=== PATIENT | female | born 2000 | race Caucasian/White ===

== ENCOUNTER 2020-07-20 12:40 | Emergency (ER) | payer OTHER ==
[2020-07-20 13:19] VITALS: BP 116/72
--- NOTE | 2020-07-20 13:38 | ER Document Report ---
ED Medical Screen (RME) - General Chief Complaint: Flank Pain Stated Complaint: RIGHT FLANK PAIN Time Seen by Provider: 07/20/20 13:31 - HPI Notes: 07/20/20 13:35 19-year-old female presents to the emergency room today complaints of right flank pain that started 4 days ago. Patient reports episodes lasting for up to an hour of burning pain. She reports she tried [id number] Tylenol without relief. Reports her episodes are 5 out of 5 pain. Reports nausea denies any vomiting, diarrhea, abdominal pain. Patient denies any dysuria. Patient is unsure of her last menstrual cycle as she was on the Depo shot, she has not received a Depo shot since March 2020. She is sexually active, does not use any form of contraceptive. Denies any vaginal bleeding or vaginal discharge. Patient has not taken a test. Denies any fevers or chills. Patient reports she does have a history of nephrolithiasis I have greeted and performed a rapid initial assessment of this patient. A comprehensive ED assessment and evaluation of the patient, analysis of test results and completion of the medical decision making process will be conducted by additional ED providers. PHYSICAL EXAMINATION: GENERAL: Well-appearing, well-nourished and in no acute distress. HEAD: Atraumatic, normocephalic. CV: s1, s2 regular LUNGS: No respiratory distress abd: Abdominal tenderness on palpation, no distention. No CVA tenderness appreciated bilaterally. Musculoskeletal: Normal range of motion NEUROLOGICAL: Normal speech, normal gait. SKIN: Warm, Dry, normal turgor, no rashes or lesions noted. The patient was evaluated during a global COVID-19 pandemic and that diagnosis was suspected/considered upon their initial presentation. Their evaluation, treatment and testing was consistent with current guidelines for patients who present with complaints or symptoms and may be related to COVID-19. Physical Exam - Vital signs Vitals: Temp Pulse Resp BP Pulse Ox 98.8 F 87 14 116/72 100 07/20/20 13:15 07/20/20 13:15 07/20/20 13:15 07/20/20 13:15 07/20/20 13:15 Course - Vital Signs Vital signs: Temp Pulse Resp BP Pulse Ox 98.8 F 87 14 116/72 100 07/20/20 13:15 07/20/20 13:15 07/20/20 13:15 07/20/20 13:15 07/20/20 13:15
[2020-07-20 14:05] LABS: ABSOLUTE BASOPHILS # (AUTO) 0.1 10^3/uL (0.0-0.2); ABSOLUTE LYMPHOCYTES (AUTO) 1.8 10^3/uL (0.5-4.7); ABSOLUTE MONOCYTES (AUTO) 0.5 10^3/uL (0.1-1.4); ABSOLUTE NEUT (AUTO) 4.4 10^3/uL (1.7-8.2); EOSINOPHILS % (AUTO) 0.6 % (0-6); HEMATOCRIT 40.1 % (36.0-47.0); HEMOGLOBIN 13.7 g/dL (12.0-15.5); LYMPHOCYTES % (AUTO) 25.8 % (13-45); MEAN CORPUSCULAR HGB CONC 34.1 g/dL (32.0-36.0); MEAN CORPUSCULAR VOLUME 88 fl (80-97); MONOCYTES % (AUTO) 7.5 % (3-13); PLATELET COUNT 223 10^3/uL (150-450); RED BLOOD COUNT 4.56 10^6/uL (3.72-5.28); RED CELL DISTRIBUTION WIDTH 12.6 % (11.5-14.0); SEGMENTED NEUTROPHILS % (AUTO) 65.1 % (42-78); TOTAL CELLS COUNTED % (AUTO) 100 %; WHITE BLOOD COUNT 6.8 10^3/uL (4.0-10.5)
[2020-07-20 14:15] LABS: APPEARANCE,URINE CLEAR; BILIRUBIN,URINE NEGATIVE (NEGATIVE); COLOR,URINE YELLOW; GLUCOSE, URINE NEGATIVE (NEGATIVE); KETONES,URINE NEGATIVE (NEGATIVE); LEUKOCYTE ESTERASE,URINE TRACE (NEGATIVE); NITRITE,URINE NEGATIVE (NEGATIVE); PROTEIN,URINE NEGATIVE (NEGATIVE); URINE SPECIFIC GRAVITY 1.014; UROBILINOGEN,URINE NEGATIVE mg/dL (<2.0)
[2020-07-20 14:45] LABS: ALKALINE PHOSPHATASE 64 U/L (38-126); ASPARTATE AMINO TRANSFERASE 39 U/L (14-36); BILIRUBIN,TOTAL 1.1 mg/dL (0.2-1.3); BLOOD UREA NITROGEN 9 mg/dL (7-20); CALCIUM 9.3 mg/dL (8.4-10.2); CARBON DIOXIDE 30 mmol/L (22-30); CHLORIDE 102 mmol/L (98-107); GLUCOSE 82 mg/dL (75-110); POTASSIUM 3.9 mmol/L (3.6-5.0); TOTAL PROTEIN 6.7 g/dL (6.3-8.2)
[2020-07-20 14:47] LABS: ANION GAP 4 (5-19)
--- NOTE | 2020-07-20 15:00 | RADIOLOGY REPORT (SQ) ---
EXAM DESCRIPTION: U/S RETROPERITON (RENAL/AORTA) IMAGES COMPLETED DATE/TIME: 07/20/2020 2:50 pm REASON FOR STUDY: right flank pain x4d, +nausea COMPARISON: None. TECHNIQUE: Dynamic and static grayscale images acquired of the kidneys and bladder and recorded on P ACS. Additional selected color Doppler and spectral images recorded. LIMITATIONS: None. FINDINGS: RIGHT KIDNEY: The right kidney measures 12.3 x 4.8 x 4.0 cm, normal size. Normal echogeni city. No solid or suspicious masses. No hydronephrosis. A 4 x 3 x 2 mm echogenic focus may represent a nonobstructing calculus. LEFT KIDNEY: The left kidney measures 11.6 x 4.7 x 4.4 cm, normal size. Normal echogenicity. No anders d or suspicious masses. No hydronephrosis. No calcifications. BLADDER: No masses. Bilateral ureteral jets are not visualized. OTHER FINDINGS: No other significant finding. IMPRESSION: 1. Nonobstructing small subcentimeter right renal calculus. TECHNICAL DOCUMENTATION: JOB ID: [id number] [employer]- All Rights Reserved Reading location - IP/workstation name: [email or web address]
--- NOTE | 2020-07-20 16:31 | ER Document Report ---
ED General - General Chief Complaint: Flank Pain Stated Complaint: RIGHT FLANK PAIN Time Seen by Provider: 07/20/20 13:31 Primary Care Provider: MIGUEL FORBES PA-C [Primary Care Provider] - Follow up as needed Mode of Arrival: Ambulatory Information source: Patient - [facility] Notes: Patient presents with right flank pain for approximately 4 days. She states it has been intermittent. Nothing makes it better or worse. It radiates from the right flank down the right lower part of the abdomen. It does make her nauseous when she gets the pain. No vomiting. She has had some constipation. No blood in the urine or significant pain with urination. She has had kidney stones in the past and this feels similar. She denies any knowledge of being and states that she had a negative test 2 days ago. No vaginal symptoms. Patient states she is never seen a urologist in the past. The pain is been sharp and severe. Past Medical History - General Information source: Patient - Social History Smoking Status: Current Every Day Smoker Chew tobacco use (# tins/day): No Frequency of alcohol use: Occasional Drug Abuse: None Family History: Reviewed & Not Pertinent Patient has homicidal ideation: No Review of Systems - Review of Systems Constitutional: denies: Chills, Fever Cardiovascular: denies: Chest pain, Palpitations Respiratory: denies: Cough, Short of breath -: Yes All other systems reviewed and negative Physical Exam - Vital signs Vitals: Temp 98.8 F 07/20/20 12:41 Interpretation: Normal - General General appearance: Appears well, Alert - HEENT Head: Normocephalic, Atraumatic Eyes: Normal Pupils: PERRL - Respiratory Respiratory status: No respiratory distress Chest status: Nontender Breath sounds: Normal Chest palpation: Normal - Cardiovascular Rhythm: Regular Heart sounds: Normal auscultation Murmur: No - Abdominal Inspection: Normal Distension: No distension Bowel sounds: Normal Tenderness: Nontender Organomegaly: No organomegaly - Back Back: Normal, Nontender - Extremities General upper extremity: Normal inspection, Nontender, Normal color, Normal ROM, Normal temperature General lower extremity: Normal inspection, Nontender, Normal color, Normal ROM, Normal temperature, Normal weight bearing. No: Lopez's sign - Neurological Neuro grossly intact: Yes Cognition: Normal Orientation: AAOx4 Mertens Coma Scale Eye Opening: Spontaneous Mertens Coma Scale Verbal: Oriented Mertens Coma Scale Motor: Obeys Commands Mertens Coma Scale Total: 15 Speech: Normal Motor strength normal: LUE, RUE, LLE, RLE Sensory: Normal - Psychological Associated symptoms: Normal affect, Normal mood - Skin Skin Temperature: Warm Skin Moisture: Dry Skin Color: Normal Course - Re-evaluation Re-evalutation: 07/20/20 16:28 Patient presents with right flank pain that radiates in the right lower quadrant. She has no rebound no guarding. No surgical abdominal signs. I do not believe this is appendicitis as patient has no significant tenderness in the right lower quadrant on palpation. Also patient does state that this pain feels similar to previous kidney stone pain she is had. Ultrasound does show a stone in the kidney. Patient has no fevers or elevated white blood cell count. - Vital Signs Vital signs: Temp Pulse Resp BP Pulse Ox 98.8 F 87 14 116/72 100 07/20/20 13:15 07/20/20 13:15 07/20/20 13:15 07/20/20 13:15 07/20/20 13:15 - Laboratory Results Result Diagrams: 07/20/20 13:39 07/20/20 13:39 Laboratory Results Interpreted: 07/20/20 07/20/20 13:20 13:39 Sodium 135.7 L Anion Gap 4 L AST 39 H ALT 46 H Urine Blood SMALL H Ur Leukocyte Esterase TRACE H Critical Laboratory Results Reviewed: No Critical Results - Radiology Results Critical Radiology Results Reviewed: No Critical Results Discharge - Discharge Clinical Impression: Ureteral stone Condition: Stable Disposition: HOME, SELF-CARE Instructions: Kidney Stone ([facility]) Additional Instructions: Please call your urologist as soon as possible to arrange follow-up Prescriptions: Hydrocodone/Acetaminophen [Willis 5-325 mg Tablet] 1 tab PO Q6 PRN 3 Days #12 tablet PRN Reason: For Pain Ondansetron [Zofran Odt 4 mg Tablet] 1 - 2 tab PO Q4H PRN #15 tab.rapdis PRN Reason: For Nausea/Vomiting Forms: Return to Work Referrals: NORMAN CHOWDHURY MD [NO LOCAL MD] - Follow up in 3-5 days
== END 2020-07-20 16:40 | disposition home or self-care (01) ==
LOC: ER 12:40
DX: N20.1 Calculus of ureter (principal); K59.00 Constipation, unspecified; R11.0 Nausea; R10.9 Unspecified abdominal pain; R10.31 Right lower quadrant pain; F17.200 Nicotine dependence, unspecified, uncomplicated
CPT/HCPCS: 36415; 76770; 80053; 81001; 83690; 84702; 85025; 99284